=== PATIENT | female | born 2000 | race Caucasian/White ===

== ENCOUNTER 2023-06-07 22:28 | Emergency (ER) | payer SELFPAY ==
[~2023-06-07] VITALS: Ht 160 cm; Wt 52.2 kg
[2023-06-07] MEDS ORDERED: CIPROFLOXACIN HCL 250 MG TABLET PO ONE (23:00)
[2023-06-07] MEDS ORDERED: CIPR-262 PO (23:00)
[2023-06-07] MEDS ORDERED: CIPROFLOXACIN HCL 500 MG TABLET ONE (23:04)
[2023-06-07 23:09] VITALS: BP 110/75; TEMP 98.5; O2SAT 99
[2023-06-07 23:32] LABS: APPEARANCE,URINE SLIGHTLY CLOUDY (CLEAR); BILIRUBIN,URINE 2+ (NEGATIVE); BLOOD, URINE TRACE-INTA Ery/uL (NEGATIVE); COLOR,URINE OTHER (YELLOW); KETONES,URINE TRACE mg/dL (NEGATIVE); LEUKOCYTE ESTERASE ,URINE TRACE (NEGATIVE); NITRITE, URINE NEGATIVE (NEGATIVE); PH,URINE 6.5 (5.0-8.0); PROTEIN,URINE TRACE mg/dl (NEGATIVE); UGLUCOSE NEGATIVE (NEGATIVE)
[2023-06-07 23:35] LABS: PREGNANCY TEST URINE QUAL NEGATIVE (NEGATIVE)
[2023-06-07 23:46] LABS: ADD URINE CULTURE NO; BACTERIA,URINE 1+ /HPF (None Seen); MUCUS,URINE Few /LPF (None Seen); RBC,URINE 0-2 /HPF (0-2)
== END 2023-06-07 23:09 | disposition home or self-care (01) ==
LOC: ER 22:31
DX: N39.0 Urinary tract infection, site not specified (principal); Z88.1 Allergy status to other antibiotic agents
CPT/HCPCS: 81001; 84703-TC; 87086-TC

== ENCOUNTER 2023-07-11 07:06 | Emergency (ER) | payer OTHER ==
[~2023-07-11] VITALS: Ht 160 cm; Wt 54.4 kg
[~2023-07-11 07:06] MED LIST: CIPR-262 PO
[2023-07-11 07:49] LABS: BASOPHILS % (AUTO) 0.4 % (0.0-2.0); EOSINOPHILS # (AUTO) 0.2 K/uL (0.0-0.7); EOSINOPHILS % (AUTO) 2.7 % (0.0-6.0); HEMATOCRIT 42 % (33-45); LYMPHOCYTES # (AUTO) 3.9 K/uL (0.8-4.8); LYMPHOCYTES % (AUTO) 57.2 % (20.0-44.0); MEAN CORPUSCULAR HEMOGLOBIN 31 PG (26.0-33.0); MEAN CORPUSCULAR HGB CONC 34 g/dl (31.0-36.0); MEAN CORPUSCULAR VOLUME 91 fL (82-100); MONOCYTES # (AUTO) 0.5 K/uL (0.1-1.30); MONOCYTES % (AUTO) 8.1 % (2.0-12.0); NEUTROPHILS # (AUTO) 2.1 K/uL (1.8-8.9); NEUTROPHILS % (AUTO) 31.6 % (43.0-81.0); PLATELET COUNT (AUTO) 360 K/uL (150-450); RED BLOOD CELL COUNT(AUTO) 4.58 MIL/uL (4.0-5.2); RED CELL DISTRIBUTION WIDTH 12.4 % (11.5-15.0); WHITE BLOOD COUNT (AUTO) 6.8 K/uL (4.3-11.0)
[2023-07-11 07:56] LABS: CALCIUM, SERUM 9.6 mg/dL (8.5-10.1); CREATININE 0.6 mg/dL (0.6-1.3); POTASSIUM 3.5 mmol/L (3.5-5.1)
[2023-07-11] MEDS ORDERED: CEFTRIAXONE 1GM BAG (ER ONLY) 1 GM/50 ML PIGGYBACK IV ONE (08:30)
[2023-07-11] MEDS ORDERED: CEFTRIAXONE 1GM BAG (ER ONLY) 50 ML IV ONE (08:33)
[2023-07-11] MEDS ORDERED: DILTIAZEM HCL 50 MG IV IV ONE (09:00)
[2023-07-11 09:04] LABS: APPEARANCE,URINE SLIGHTLY CLOUDY (CLEAR); BILIRUBIN,URINE NEGATIVE (NEGATIVE); BLOOD, URINE 2+ Ery/uL (NEGATIVE); COLOR,URINE YELLOW (YELLOW); KETONES,URINE NEGATIVE (NEGATIVE); LEUKOCYTE ESTERASE ,URINE NEGATIVE (NEGATIVE); NITRITE, URINE NEGATIVE (NEGATIVE); PROTEIN,URINE NEGATIVE (NEGATIVE); UGLUCOSE NEGATIVE (NEGATIVE); UROBILINOGEN,URINE 0.2 EU/dL (0.2)
[2023-07-11 09:05] LABS: ADD URINE CULTURE NO; BACTERIA,URINE None seen /HPF (None Seen); SQUAMOUS EPITHELIAL CELL,UR Rare /HPF (None Seen); WBC,URINE 0-2 /HPF (0-3)
[2023-07-11 09:39] LABS: PREGNANCY TEST URINE QUAL NEGATIVE (NEGATIVE)
[2023-07-11] MEDS ORDERED: PHEN-704 PO (10:46)
[2023-07-11 11:07] VITALS: BP 119/68; TEMP 98.2; O2SAT 98
== END 2023-07-11 11:08 | disposition home or self-care (01) ==
LOC: ER 07:06
DX: N30.11 Interstitial cystitis (chronic) with hematuria (principal); R30.0 Dysuria; Z88.8 Allergy status to other drugs, medicaments and biological substances
CPT/HCPCS: 99285; 74176; 96365; 85025; 80048; 87086; 84703; 81001; 36415; J0696